=== PATIENT | female | born 1990 | race Two or more races ===

== ENCOUNTER 2020-02-11 10:53 | Inpatient (IN) | payer OTHER ==
[2020-02-11] MEDS ORDERED: DINOPROSTONE 10 MG VAGINAL SUPPOSITORY VG ONE (11:15)
[2020-02-11] MEDS: DEXTROSE 5%-LACTATED RINGERS 1,000 ML IV SCH ×2 (11:45→18:38)
[2020-02-11 12:13] VITALS: BMI 32.5
--- NOTE | 2020-02-11 12:45 | HP ---
Past Medical History - Primary Care Physician PCP:: Misty Franklin - Admission Chief Complaint: 29yo P 0 @ 39.9wks with borderline RAMILA at term. Category 2 FHR in the office, normal FM, no VB, no LOF, irregular contructions History of Present Illness: 1. Obese - 8lb weight gain, GCT - 134, EFW today 8lb-3618gm 2. GBS neg History Source: Patient, Medical Record Limitations to Obtaining History: No Limitations - Past Medical History ...: 1 ...Para: 0 ...Term: 0 ...: 0 ...Spon : 0 ...Induced : 0 ...Living Children: 0 ...Multiple Gestation: 0 ...LMP: 05/08/19 ... Weeks Gestation by Dates: 39.6 ...EDC by Dates: 02/12/20 ...EDC by Sono: 02/12/20 - Past Surgical History Past Surgical History: Yes: None Hx Myomectomy: No Hx Transabdominal Cerclage: No - Smoking History Smoking history: Never smoked Have you smoked in the past 12 months: No - Alcohol/Substance Use Hx Alcohol Use: No History of Substance Use: reports: None - Social History Usual Living Arrangement: Yes: With Parent Do you think of yourself as: Straight/Heterosexual History of Recent Travel: No Home Medications - Allergies Allergies/Adverse Reactions: Allergies Allergy/AdvReac Type Severity Reaction Status Date / Time No Known Allergies Allergy Verified 02/11/20 12:01 - Home Medications Home Medications: Ambulatory Orders Vit,Calc76/Iron/Folic [Pnv 29-1 Tablet] 1 tab PO DAILY 11/01/19 Review of Systems - Review of Systems Constitutional: reports: No Symptoms Eyes: reports: No Symptoms HENT: reports: No Symptoms Neck: reports: No Symptoms Cardiovascular: reports: No Symptoms Respiratory: reports: No Symptoms Gastrointestinal: reports: No Symptoms Genitourinary: reports: No Symptoms Breasts: reports: No Symptoms Reported Musculoskeletal: reports: No Symptoms Integumentary: reports: No Symptoms Neurological: reports: No Symptoms Endocrine: reports: No Symptoms Hematology/Lymphatic: reports: No Symptoms Psychiatric: reports: No Symptoms Pain Intensity: 0 Physical Exam - Maternity Vital Signs: Vital Signs Temperature 98.4 F 02/11/20 11:45 Pulse Rate Respiratory Rate Blood Pressure O2 Sat by Pulse Oximetry (%) Constitutional: Yes: Well Nourished, No Distress, Calm Eyes: Yes: WNL, Conjunctiva Clear, EOM Intact HENT: Yes: WNL, Atraumatic, Normocephalic Neck: Yes: WNL, Supple, Trachea Midline Cardiovascular: Yes: WNL, Regular Rate and Rhythm Lungs: Clear to auscultation Breast(s): Yes: WNL - Abdominal Exam/OB Fundal Height: 40 Number of Fetuses: Single Presentation: Vertex Contractions: Yes Regularity: Irregular Intensity: Mild Heart Rate (range): 140 Heart Rate Location: Midline Category: I Accelerations: Uniform Decelerations: None - Vaginal Exam/OB Vaginal Bleeding: No Speculum Exam: No Dilatation (cm): 0 Effacement (%): 0 Amniotic Membrane Status: Intact Presentation: Vertex/Position Station: -3 - Physical Exam Musculoskeletal: Yes: WNL Extremities: Yes: WNL Integumentary: Yes: WNL ...Motor Strength: WNL Psychiatric: Yes: WNL, Alert, Oriented Assessment/Plan 29yo P0 @ 39.6wks with borderline RAMILA @ term Irregular contractions Admit to L&D for Cervidil IOL IVF, NPO, Labs Place Cervidil Pain management as needed Process of labor induction discussed with patient All questions answered
--- NOTE | 2020-02-11 12:46 | PN ---
Progress Note (short form) - Note Progress Note: Pt was seen and examined. Chart was reviewed. The pt is a 29 yo with at EGA 39w6d was referred by Dr. Osuna for labor indx. The pt's care was complicated by intermittent BP elevations, possible chronic HTN (not on meds), poor weight gain. The pt has a Category I heart tracing with mild irregular contractions. Her cervix is 1cm/20%/-4 and she has a gynecoid pelvimetry on exam. The EFW is 8lbs by Librado's maneuvers. Pt is not in labor. We had long discussion re: risks, benefits, and alternatives of labor induction. I explained the options of expectant management awaiting spontaneous labor, induction of labor, and elective section. The risks of uterine tachysystole, distress, uterine rupture, need for emergency C/S, hemorrhage, infection, scarring, etc. were discussed. We also discussed the risks of meconium aspiration, shoulder dystocia, and anesthesia options. The pt requested to proceed with induction. We discussed the alternative methods of induction with Cervidil, Cytotec, Folley ballon, and pitocin. The pt prefers Cervidil followed by pitocin, if needed. Cervidil was inserted at 12:35 pm.
[2020-02-11 12:50] LABS: BASO % 0.7 % (0-2.0); EOS % 0.2 % (0-4.5); HEMATOCRIT 38.6 % (32.4-45.2); LYMPH % 20.3 % (8-40); MCHC 33.7 g/dl (32.0-36.0); MEAN CELL VOLUME 89.3 fl (80-96); MEAN PLT VOLUME 9.7 fl (7.5-11.1); NEUT % 69.8 % (42.8-82.8); PLATELET COUNT 328 K/MM3 (134-434); RBC 4.32 M/mm3 (3.60-5.2); RDW 14.9 % (11.6-15.6); WHITE BLOOD COUNT 7.7 K/mm3 (4.0-10.0)
[2020-02-11 12:57] LABS: INR 0.87 (0.83-1.09); PROTHROMBIN TIME (PATIENT) 10.2 SEC (9.7-13.0)
[2020-02-11 12:59] LABS: ACTIVATED PTT 30.4 SECONDS (25.2-36.5)
[2020-02-11 13:03] LABS: CALCIUM 9.1 mg/dL (8.5-10.1); CREATININE 0.5 mg/dL (0.55-1.3); POTASSIUM 4.8 mmol/L (3.5-5.1)
[2020-02-11 14:25] LABS: RETICULOCYTES 1.68 % (0.5-1.5)
[2020-02-11 14:44] LABS: URIC ACID 5.3 mg/dL (2.6-7.2)
[2020-02-11 15:09] LABS: PH,URINE 5.5 (5.0-8.0); URINE APPEARANCE CLEAR; URINE BILIRUBIN NEGATIVE (NEGATIVE); URINE COLOR YELLOW; URINE GLUCOSE (UA) NEGATIVE (NEGATIVE); URINE KETONE NEGATIVE (NEGATIVE); URINE LEUK ESTERASE NEGATIVE (NEGATIVE); URINE NITRITE NEGATIVE (NEGATIVE); URINE PROTEIN NEGATIVE (NEGATIVE); URINE UROBILINOGEN 0.2 mg/dL (0.2-1.0)
[2020-02-11] MEDS ORDERED: PROMETHAZINE HCL 25 MG/1 ML VIAL IVPUSH ONE (20:53)
[2020-02-11] MEDS ORDERED: BUTORPHANOL TARTRATE 1 MG/ML VIAL IVPB ONE (20:53)
[2020-02-12] MEDS ORDERED: BUTORPHANOL TARTRATE 1 MG/ML VIAL ONE ×2 (00:52)
[2020-02-12] MEDS ORDERED: PROMETHAZINE HCL 25 MG/1 ML VIAL ONE (00:52)
[2020-02-12] MEDS: ELECTROLYTE-148 SOLN 1,000 ML IV SCH ×2 (04:00→23:00)
[2020-02-12] MEDS ORDERED: OXYTOCIN 30 UNITS in 0.9% NS 30 UNIT/500 ML INFUS.BAG IVPB ONE ×2 (04:55→05:00)
--- NOTE | 2020-02-12 08:10 | PN ---
Progress Note, Labor Vaginal Exam #1 Labor Exam Date: 02/12/20 Labor Exam Time: 06:15 Heart Rate (range): 140, Category 1 Dilatation: 2 Effacement (%): 50 Amniotic Membrane Status: Intact Presentation: Vertex/Position Station: -3 Remarks: 29yo P0 @ 40 wks today undergoing IOL s/p Cervidil with some cervical change now on Pitocin 3mU/min continue IOL since overall MF wellbeing is reassuring
[2020-02-12] MEDS: DEXTROSE 5%-LACTATED RINGERS 1,000 ML IV SCH (11:11)
--- NOTE | 2020-02-12 12:04 | PN ---
Progress Note, Labor Vaginal Exam #2 Labor Exam Date: 02/12/20 Labor Exam Time: 12:00 Heart Rate (range): 140's Category 1 Dilatation: 2-3 Effacement (%): 50% Amniotic Membrane Status: Intact Presentation: Vertex/Position Station: -3 Remarks: 29yo P0 @ 40 wks on Pitocin 8mU/Min for term IOL MF status reassuring Will continue Induction Pain management as needed
[2020-02-12] MEDS ORDERED: PCA PUMP NR ONE ×2 (12:46→23:08)
[2020-02-12] MEDS ORDERED: FENTANYL/BUPIVACAINE/NS/PF - PCEA - 50 ML DISP.SYRIN EP ONE ×3 (12:46→23:08)
[2020-02-12] MEDS ORDERED: NALOXONE HCL 0.4 MG/ML VIAL IVPUSH PRN (12:47)
[2020-02-12] MEDS: FENTANYL/BUPIVACAINE/NS/PF - PCEA - 50 ML DISP.SYRIN EP SCH (13:20)
--- NOTE | 2020-02-12 20:41 | PN ---
Ante-Partal Exam - Subjective Subjective: No complaints, s/p epidural. Pt had pitocin restarted at about 7:30 pm. Pt had AROM done at 3pm Vital Signs: Vital Signs Temperature 98.8 F 02/12/20 20:00 Pulse Rate 82 02/12/20 20:15 Respiratory Rate 20 02/12/20 20:15 Blood Pressure 162/78 02/12/20 20:15 O2 Sat by Pulse Oximetry (%) 100 02/12/20 20:15 Bleeding: No Headache: No Visual changes: No Right upper quadrant pain: No Pain (scale 1-10): 0 - Contractions Contractions: Yes Regularity: Regular Intensity: Unaware Monitor Mode: External - Exam during Labor Heart Rate: 145 Variability: Moderate Heart Rate Location: Midline Category: I Monitor Accelerations: Present Monitor Decelerations: None Exam: Vaginal Dilatation (cm): 3 Effacement (%): 50 Amniotic Membrane Status: Leaking Amniotic Fluid: Clear Presentation: Vertex Station: -4 - Intrapartum Hemorrhage Risk Medium Risk Factors: None High Risk Factors: None Risk Score: 0 Risk Level: Low Risk - Assessment/Plan Assessment/Plan: Pt with no cervical change at this point. Fetus with Category I tracing and needs no intervention. We discussed options and she prefers to continue the labor indx. Monitor BP.
[2020-02-12] MEDS ORDERED: CITRIC ACID/SODIUM CITRATE 30 ML UNIT-DOSE CUP PO ONE ×2 (23:00→23:45)
[2020-02-12] MEDS ORDERED: ELECTROLYTE-148 SOLN 500 ML IV ONE ×2 (23:00→23:30)
[2020-02-12] MEDS ORDERED: AMPICILLIN SODIUM 2 GM VIAL ONE (23:25)
[2020-02-12] MEDS ORDERED: GENTAMICIN SO4 80 MG/2 ML VIAL ONE (23:26)
[2020-02-12] MEDS ORDERED: AMPICILLIN - 2 GM in SODIUM CHLORIDE 100 ML IVPB ONE (23:30)
[2020-02-12] MEDS ORDERED: GENTAMICIN INJECTION 120 MG in SODIUM CHLORIDE 100 ML IVPB ONE (23:45)
[2020-02-13] MEDS ORDERED: ONDANSETRON 4 MG/2 ML VIAL IVPUSH PRN (00:28)
[2020-02-13] MEDS ORDERED: LIDO 2%/EPI 1:200000 PRESRVFRE (20 ML SDVIAL) ONE (00:30)
[2020-02-13] MEDS ORDERED: KETOROLAC TROMETHAMINE 30 MG/1 ML VIAL ONE (00:37)
[2020-02-13] MEDS ORDERED: morphine SULFATE/PF 0.5 MG/ML (2cc Syringe - QUVA) ONE ×3 (00:38)
[2020-02-13] MEDS ORDERED: OXYTOCIN 10 UNITS/ML VIAL ONE (00:53)
--- NOTE | 2020-02-13 01:39 | OP ---
Operative Note - Note: Operative Date: 02/13/20 Pre-Operative Diagnosis: at EGA 40w1d. Failed induction, chorioamnionitis Operation: Primary LT C/S Findings: Live baby boy in vtx presentation, no meconium in amniotic fluid. Normal uterus, tubes and ovaries. 9-9, Baby's wt 7lb 11oz Post-Operative Diagnosis: Same as Pre-op Surgeon: Dilip Lopez Regional Recruiter: Moisés Ramirez Anesthesiologist/INSTITUTIONAL CUSTODIAN: Ayaan Mayfield Anesthesia: Epidural Specimens Removed: Placenta Estimated Blood Loss (mls): 700 Drains & Tubes with Location: Ramirez cath Drains, Volume Out (mls): 100 Blood Volume Replaced (mls): 0 Fluid Volume Replaced (mls): 700 Operative Report Dictated: Yes
[2020-02-13] MEDS ORDERED: BENZOCAINE 20% 57 GM BOTTLE TP PRN (01:40)
[2020-02-13] MEDS ORDERED: WITCH HAZEL 50% (TUCKS) 40 PAD/JAR PAD TP PRN (01:40)
[2020-02-13] MEDS: OXYTOCIN 20 UNITS in 0.9% NS 20 UNIT/1,000 ML INFUS.BAG IV SCH (01:40)
[2020-02-13] MEDS ORDERED: METHYLERGONOVINE MALEATE 0.2 MG/1 ML AMP IM PRN (01:40)
[2020-02-13] MEDS ORDERED: oxyCODONE HCL 5 MG TABLET PO PRN (01:40)
[2020-02-13] MEDS ORDERED: BENZOCAINE 28 GM HEMORRHOIDAL OINTMENT TP PRN (01:40)
[2020-02-13] MEDS ORDERED: IBUPROFEN 600 MG TABLET (FP) PO PRN (01:40)
[2020-02-13] MEDS ORDERED: IBUPROFEN 800 MG/8 ML IJ IVPB PRN (01:40)
[2020-02-13] MEDS: CEFAZOLIN 1 GM/D5W 1 GM/50 ML BAG IVPB SCH ×3 (02:00→18:56)
[2020-02-13 04:05] LABS: CORD PCO2 51.6 mmHg (30-78); CORD pH 7.248 (7.14-7.44)
[2020-02-13 04:07] LABS: CORD HCO3 25.4 mmHg (20-29); CORD PCO2 63.6 mmHg (30-78)
[2020-02-13] MEDS ORDERED: SODIUM CHLORIDE 100 ML IVPB ONE ×2 (04:24→08:28)
[2020-02-13] MEDS ORDERED: AMPICILLIN SODIUM 1 GM VIAL ONE ×2 (04:24→08:28)
[2020-02-13] MEDS: AMPICILLIN - 1 GM in SODIUM CHLORIDE 100 ML IVPB SCH ×3 (04:44→18:55)
[2020-02-13] MEDS: PRENATAL VITAMINS W/ FOLIC ACID TABLET (FP) PO SCH (09:29)
--- NOTE | 2020-02-13 09:37 | PN ---
Progress Note, Physician Chief Complaint: s/p c section under spinal anesthesia post op day one History of Present Illness: duramorph for post op pain control - Current Medication List Current Medications: Active Medications Acetaminophen (Tylenol -) 650 mg PO Q4H PRN PRN Reason: PAIN 4-6 Benzocaine (Americaine 20% [place] -) 1 spray TP PRN PRN PRN Reason: Pain - Topical Benzocaine (Americaine Ointment -) 1 applic TP PRN PRN PRN Reason: Pain - Topical Bisacodyl (Dulcolax Suppository -) 10 mg RC PRN PRN PRN Reason: CONSTIPATION Enoxaparin Sodium (Lovenox -) 40 mg SQ DAILY [facility] Fentanyl/Bupivacaine/Sodium Chlor (Bupivicaine 0.125%/Fentanyl 2mcg/Ml Pcea) 50 ml EP ASDIR [facility]; Protocol Last Admin: 02/12/20 13:20 Dose: 50 ml Documented by: Dextrose/Lactated Ringer's (D5-Lr -) 1,000 mls @ 125 mls/hr IV ASDIR [facility] Last Admin: 02/12/20 11:11 Dose: 125 mls/hr Documented by: Parenteral Electrolytes (Plasma-Lyte 148 -) 1,000 mls @ 125 mls/hr IV ASDIR [facility] Last Admin: 02/12/20 23:00 Dose: 125 mls/hr Documented by: Oxytocin/Sodium Chloride (Normal Saline+30 Units Oxytocin) 30 unit in 500 mls @ 1 mls/hr IVPB TITR ONE; Protocol Stop: 03/04/20 00:59 Last Titration: 02/12/20 23:00 Dose: 0 unit/hr, 0 mls/hr Documented by: Ampicillin Sodium 1 gm/ Sodium (Chloride) 100 mls @ 200 mls/hr IVPB Q4H [facility] Stop: 02/14/20 03:59 Last Admin: 02/13/20 08:38 Dose: 200 mls/hr Documented by: Oxytocin/Sodium Chloride (Normal Saline+20 Units Oxytocin -) 20 unit in 1,000 mls @ 125 mls/hr IV ASDIR [facility] Last Admin: 02/13/20 01:40 Dose: 125 mls/hr Documented by: Cefazolin Sodium (Ancef 1 Gm Premixed Ivpb -) 1 gm in 50 mls @ 100 mls/hr IVPB Q8H-IV TRISTIAN Stop: 02/13/20 18:29 Last Admin: 02/13/20 02:00 Dose: Not Given Documented by: Ibuprofen (Motrin -) 600 mg PO Q4H PRN PRN Reason: PAIN LEVEL 1-5 Ibuprofen (Motrin -) 600 mg PO Q4H PRN PRN Reason: PAIN LEVEL 1 - 3 Ibuprofen (Caldolor Injection -) 800 mg IVPB Q8H PRN PRN Reason: PAIN LEVEL 1-5 Last Admin: 02/13/20 09:24 Dose: 800 mg Documented by: Methylergonovine Maleate (Methergine Injection -) 0.2 mg IM Q4H PRN PRN Reason: Excessive Bleeding (L&D) Naloxone HCl (Narcan -) 0.4 mg IVPUSH PRN PRN PRN Reason: Sedation Ondansetron HCl (Zofran Injection) 4 mg IVPUSH Q4H PRN PRN Reason: NAUSEA Oxycodone HCl (Roxicodone -) 5 mg PO Q4H PRN PRN Reason: PAIN LEVEL 4 - 6 Multivit/Folic Acid/Iron ( Vitamins (Sjr) -) 1 tab PO DAILY [facility] Last Admin: 02/13/20 09:29 Dose: Not Given Documented by: Simethicone (Mylicon -) 80 mg PO Q4H PRN PRN Reason: GAS Witch Brandy/Glycerin (Tucks Pads -) 1 pad TP PRN PRN PRN Reason: Pain - Topical - Objective Vital Signs: Vital Signs Temperature 98.6 F 02/13/20 04:00 Pulse Rate 79 02/13/20 04:00 Respiratory Rate 18 02/13/20 06:00 Blood Pressure 132/80 02/13/20 04:00 O2 Sat by Pulse Oximetry (%) 98 02/13/20 02:45 Constitutional: Yes: Well Nourished Cardiovascular: Yes: WNL Respiratory: Yes: WNL Gastrointestinal: Yes: WNL Labs: CBC, BMP 02/11/20 13:54 02/11/20 11:53 INR, PTT INR 0.87 (0.83-1.09) 02/11/20 11:53 Assessment/Plan patient doing well, pain controlled, no nausea or vomiting, no post anesthesia complications, Dept of anesthesia will sign off care at this time.
[2020-02-13] MEDS: SIMETHICONE 80 MG TAB.CHEW (FP) PO PRN (19:17)
[2020-02-13] MEDS: ACETAMINOPHEN 325 MG TABLET (FP) PO PRN (19:17)
[2020-02-13] MEDS: IBUPROFEN 600 MG TABLET (FP) PO PRN (19:17)
[2020-02-13] MEDS: ELECTROLYTE-148 SOLN 1,000 ML IV SCH (21:18)
[2020-02-13] MEDS: FENTANYL/BUPIVACAINE/NS/PF - PCEA - 50 ML DISP.SYRIN EP SCH (21:20)
[2020-02-14] MEDS: SIMETHICONE 80 MG TAB.CHEW (FP) PO PRN ×3 (01:14→21:44)
[2020-02-14] MEDS: IBUPROFEN 600 MG TABLET (FP) PO PRN ×3 (01:14→21:43)
[2020-02-14] MEDS: ACETAMINOPHEN 325 MG TABLET (FP) PO PRN ×3 (01:14→21:44)
[2020-02-14] MEDS ORDERED: BISACODYL 10 MG SUPP.RECT RC PRN (01:40)
[2020-02-14] MEDS ORDERED: CEFAZOLIN 1 GM/D5W 1 GM/50 ML BAG IVPB SCH (02:00)
[2020-02-14] MEDS: OXYTOCIN 20 UNITS in 0.9% NS 20 UNIT/1,000 ML INFUS.BAG IV SCH (03:33)
--- NOTE | 2020-02-14 07:24 | OP ---
DATE OF OPERATION: 02/13/2020 PREOPERATIVE DIAGNOSES: at estimated gestational age of 40 weeks and 1 day, post term , failed labor induction, chorioamnionitis. POSTOPERATIVE DIAGNOSES: at estimated gestational age of 40 weeks and 1 day, post term , failed labor induction, chorioamnionitis, delivered. PROCEDURE: Primary low transverse section via Pfannenstiel skin incision. SURGEON: Dilip Lopez MD RESIN MIXER: REBEKAH Diaz ANESTHESIOLOGIST: KIMMY Golden ANESTHESIA: Epidural. PATHOLOGY: Placenta. INTRAVENOUS FLUIDS: 700 mL. ESTIMATED BLOOD LOSS: 700 mL. URINE OUTPUT: Clear urine, 100 mL, at the end of the procedure. COMPLICATIONS: None. FINDINGS: Live baby boy in vertex presentation. No meconium in amniotic fluids. Normal uterus, tubes and ovaries. Baby's Apgars are 9 and 9. Baby's weight 7 pounds 11 ounces. DESCRIPTION OF PROCEDURE: The patient was met preoperatively. Risks, benefits and alternatives of surgery were discussed in detail. All questions were answered. The consent form was reviewed and the patient verbalized her understanding. The patient was then moved to the OR. The patient was placed on a surgical table in a supine position. The epidural anesthesia was bolused and the level was found to be adequate. The Ramirez catheter was inserted and left to drain to gravity. The patient was prepped and draped in the usual sterile fashion. A timeout was conducted as per standard protocol. The surgeons proceeded with the operation. A Pfannenstiel skin incision was made with a knife approximately 2 cm above the pubic symphysis. The incision was taken down to the level of fascia with the knife. The incision was made in the fascia and extended bilaterally using Wynn scissors. The fascia was dissected away from the rectus muscles superiorly and inferiorly. The rectus muscles were in the midline. The peritoneum was identified, tented up with 2 Teresa clamps and entered sharply. The peritoneal incision was extended superiorly and inferiorly. The bladder peritoneum was then dissected away from the lower uterine segment. The bladder was also dissected sharply away from the lower uterine segment. The bladder was reflected downwards. The uterus was incised transversely in the lower uterine segment. The incision was extended bilaterally using bandage scissors. The baby was delivered from vertex presentation without complications. The baby was crying spontaneously and was handed to the waiting outsole beveler. The placenta was expressed manually without complications. The placenta was sent to Pathology. The uterus was cleared of all clots and debris using laparotomy laps. The uterine incision was repaired using a 0 Biosyn suture. The uterine incision was imbricated with a secondary layer of closure using a 0 Biosyn suture. Good hemostasis was noted. The bladder peritoneum was then approximated using a 0 Biosyn suture. The operative site was irrigated using copious amounts of normal saline. Once the saline was aspirated good hemostasis was confirmed. The parietal peritoneum was then approximated using a 2-0 chromic suture. The rectus muscles were approximated in the midline using several interrupted 2-0 chromic sutures. The fascia was then closed using a 0 Vicryl suture. The subcutaneous adipose tissues and Remi fascia were reapproximated using several interrupted 0 Vicryl sutures. The skin was closed using a 4-0 Vicryl suture with a subcutaneous tissue. Sponge, lap, needle counts were correct. The patient tolerated procedure well and was transferred to recovery room in stable condition. Meenakshi [id number]
[2020-02-14 08:18] LABS: BASO % 0.6 % (0-2.0); EOS % 1.3 % (0-4.5); HEMATOCRIT 29.3 % (32.4-45.2); HEMOGLOBIN 9.7 GM/dL (10.7-15.3); LYMPH % 12.6 % (8-40); MCH 29.3 pg (25.7-33.7); MEAN CELL VOLUME 88.8 fl (80-96); MEAN PLT VOLUME 9.4 fl (7.5-11.1); MONO % 9.8 % (3.8-10.2); NEUT % 75.7 % (42.8-82.8); PLATELET COUNT 265 K/MM3 (134-434); WHITE BLOOD COUNT 10.9 K/mm3 (4.0-10.0)
[2020-02-14] MEDS: ENOXAPARIN NA (PORCINE) 40 MG/0.4 ML DISP.SYRIN SQ SCH (10:12)
[2020-02-14] MEDS: PRENATAL VITAMINS W/ FOLIC ACID TABLET (FP) PO SCH (10:12)
[2020-02-15] MEDS: IBUPROFEN 600 MG TABLET (FP) PO PRN ×2 (05:45→09:46)
[2020-02-15] MEDS: SIMETHICONE 80 MG TAB.CHEW (FP) PO PRN ×2 (05:45→09:45)
[2020-02-15] MEDS: ACETAMINOPHEN 325 MG TABLET (FP) PO PRN ×2 (05:45→09:46)
--- NOTE | 2020-02-15 06:51 | DS ---
Physical Exam-ALMOND PASTE MIXER Vital Signs: Vital Signs Temperature 98.6 F 02/14/20 22:00 Pulse Rate 84 02/14/20 22:00 Respiratory Rate 18 02/14/20 22:00 Blood Pressure 135/84 02/14/20 22:00 O2 Sat by Pulse Oximetry (%) 98 02/13/20 02:45 Constitutional: Yes: Well Nourished, No Distress, Calm Eyes: Yes: WNL, Conjunctiva Clear, EOM Intact HENT: Yes: WNL, Atraumatic, Normocephalic Neck: Yes: WNL, Supple, Trachea Midline Cardiovascular: Yes: WNL, Regular Rate and Rhythm Respiratory: Yes: WNL, Regular, CTA Bilaterally Gastrointestinal: Yes: WNL ...Rectal Exam: Yes: WNL Renal/: Yes: WNL ....Post : Yes: Uterus firm, Uterus non-tender, Slight lochia rubra Breast(s): Yes: WNL Musculoskeletal: Yes: WNL Extremities: Yes: WNL Edema: Yes Edema: LLE: Trace, RLE: Trace Integumentary: Yes: WNL Wound/Incision: Yes: Clean/Dry, Well Approximated, Sutures Intact Neurological: Yes: WNL, Alert, Oriented ...Motor Strength: WNL Psychiatric: Yes: WNL, Alert, Oriented Labs: CBC, BMP 02/14/20 07:09 02/11/20 11:53 Delivery - Delivery Section: Primary, Low Flap Transverse Type of Anesthesia: Epidural Episiotomy/Laceration: None EBL (cc): 700 Delivery, Single - Stages of Labor Date 1st Stage Initiatied: 02/12/20 Time 1st Stage Initiated: 01:00 Date of Delivery: 02/13/20 Time of Delivery: 00:54 Time Placenta Delivered: 00:55 Placenta: Yes: Expressed - Condition of Education Administrator/Dredgemaster Present: Yes Name: Monique Schmitz Infant Gender: Male Weight: 7 lb 11 oz Position: OA Total Hours ROM (Hrs/Mins): 10hrs.1min - 1 Minute Total Score: 9 5 Minutes Total Score: 9 - [place] Feeding Plan Initial Plan: Elected not to breastfeed exclusively throughout hospitalization Discharge Summary Problems reviewed: Yes Reason For Visit: INDUCTION OF LABOR Procedures: Principal: primary LST c/s Hospital Course: no complication Plan of Treatment: follow up office 1 week Condition: Good - Instructions Diet, Activity, Other Instructions: regular diet, no intercouse, follow up office 1 week, if fever, pain, heavy vaginal bleeding call MD Referrals: Brando Osuna MD [Staff Physician] - Disposition: HOME - Home Medications Comprehensive Discharge Medication List: Ambulatory Orders Vit,Calc76/Iron/Folic [Pnv 29-1 Tablet] 1 tab PO DAILY 11/01/19 Ibuprofen [Motrin -] 600 mg PO QID #28 tablet 02/14/20
[2020-02-15 08:10] VITALS: BP 136/83; PULSE 81; TEMP 98.3
[2020-02-15] MEDS: PRENATAL VITAMINS W/ FOLIC ACID TABLET (FP) PO SCH (09:45)
[2020-02-15] MEDS: ENOXAPARIN NA (PORCINE) 40 MG/0.4 ML DISP.SYRIN SQ SCH (09:45)
--- NOTE | 2020-02-18 17:09 | PATH ---
Surgical Pathology Report Patient Name: PHAN DAO Med. Rec. #: [id number] /Age/Gender: 1990 (Age: 29) / F Account: [id number] Location: [facility] OBS/MANAGER FLEET Taken: 02/13/2020 Received: 02/13/2020 Reported: 02/18/2020 Physicians: Misty Franklin M.D. Specimen(s) Received PLACENTA Clinical History , 40 weeks Final Diagnosis PLACENTA: THIRD TRIMESTER PLACENTA WITH PERIVILLOUS FIBRIN DEPOSITION. TRIVASCULAR CORD. MEMBRANES WITH NO DIAGNOSTIC ABNORMALITIES. Electronically Signed Jessica Judd M.D. Gross Description The specimen is received fresh labeled placenta and is a 428 gram, 15.5 x 14.5 x 3.0 cm. placenta with attached membranes and umbilical cord. The attached membranes are dumont, translucent with focal opacities and insert marginally. The umbilical cord measures 14.5 cm. in length and averages 1 cm. in diameter. The cord inserts eccentrically, 3 cm. to the nearest margin. No true knots or strictures are identified. Cut surface of the umbilical cord reveals 3 vessels. The surface is bolden-blue with minimal fibrin deposition and appropriate caliber vessels. The maternal surface is red-brown with focal defects. Sectioning reveals red-brown, spongy parenchyma. No lesions are identified. Chiropractic Doctor sections are submitted in three cassettes as follows: 1- membrane rolls and umbilical cord; 2-3- full thickness sections of placenta. /02/13/2020 saudi02/13/2020
== END 2020-02-15 15:15 | disposition home or self-care (01) | DRG 540 ==
LOC: JLDR 10:53 → J3W 02-13 03:48
PROVIDERS: ADMIT Obstetrics & Gynecology; ATTEND Obstetrics & Gynecology
PROC: 3E0P7VZ Introduction of Hormone into Female Reproductive, Via Natural or Artificial Opening (ICD-10-PCS; 2020-02-11)
PROC: 10D00Z1 Extraction of Products of Conception, Low, Open Approach (ICD-10-PCS; principal; 2020-02-13)
DX: O48.0 Post-term pregnancy (principal); Z3A.40 40 weeks gestation of pregnancy; O61.0 Failed medical induction of labor; O99.214 Obesity complicating childbirth; O41.1230 Chorioamnionitis, third trimester, not applicable or unspecified; Z37.0 Single live birth
CPT/HCPCS: 36415; 36600; 80048; 81003; 82803; 82977; 83010; 84450; 84460; 84550; 85025; 85032; 85044; 85610; 85730; 86780; 86850; 86900; 86901; 87389; 88307-TC; U0003

== ENCOUNTER 2020-02-22 12:32 | Inpatient (IN) | payer OTHER ==
--- NOTE | 2020-02-22 12:41 | PDOC ---
Rapid Medical Evaluation Time Seen by Provider: 02/22/20 12:37 Medical Evaluation: Allergies Allergy/AdvReac Type Severity Reaction Status Date / Time No Known Allergies Allergy Verified 02/11/20 12:01 02/22/20 12:37 CC: sent by [facility] for elevated BP (145/70) , post 9 days, went for c section check and had bp reading. pt also states BLE edema for the past few days, no headache, urinary complaints Exam: bp elevated, 2+ pitting edema to BLE Plan: labs, urine Discharge Disposition - Diagnosis Elevated BP without diagnosis of hypertension - Referrals - Patient Instructions - Post Discharge Activity
[2020-02-22] MEDS ORDERED: LABETALOL HCL 5 MG/1 ML (100MG/20 ML VIAL) IVPUSH ONE ×2 (13:11→13:15)
--- NOTE | 2020-02-22 13:14 | PDOC ---
History of Present Illness - General Chief Complaint: Blood Pressure Problem Stated Complaint: SENT BY DOC Time Seen by Provider: 02/22/20 12:37 History Source: Patient Exam Limitations: No Limitations, Language Barrier - History of Present Illness Initial Comments: 02/22/20 13:16 29-year-old female no significant past medical history 9 days delivered by C section sent to ED by Dr. Valdez of OBGYN for persistent hypertension. Patient was seen in office and found to have a blood pressure of 145/90. Patient states she is asymptomatic and denies headache vision changes abdominal pain or any other signs and symptoms related to hypertension emergency. Patient is found to be hypertensive on 2 separate occasions and upon arrival to the ED her blood pressure at triage was 175/93. I spoke with SPANISH TRANSLATOR who advised to start patient on 4 g of mag and give 20 mg of labetalol IV push. Patient states she is also having minimal vaginal bleeding using 1 pad a day and denies vaginal pain. pt otherwise denies: fevers, chills, syncope, lightheadedness, dizziness, headaches, neck pain, chest pain, shortness of breath, palpitations, back pain, abdominal pain, nausea, vomiting, diarrhea, constipation, dysuria, hematuria. 02/22/20 13:39 Past History - Medical History Allergies/Adverse Reactions: Allergies Allergy/AdvReac Type Severity Reaction Status Date / Time No Known Allergies Allergy Verified 02/22/20 13:00 Home Medications: Ambulatory Orders Vit,Calc76/Iron/Folic [Pnv 29-1 Tablet] 1 tab PO DAILY 11/01/19 Ibuprofen [Motrin -] 600 mg PO QID PRN 02/22/20 Asthma: No Cancer: No Cardiac Disorders: No Diabetes: No HTN: No Seizures: No Thyroid Disease: No - Psycho-Social/Smoking History Smoking History: Never smoked Have you smoked in the past 12 months: No - Substance Abuse Hx (Audit-C & DAST Scrn) How often the patient has a drink containing alcohol: Never Score: In Men: 4 or > Positive; In Women: 3 or > Positive: 0 Screen Result (Pos requires Nsg. Audit-10AR): Negative In the last yr the pt used illegal drug/Rx for NonMed reason: No Score: Yes response is considered Positive: 0 Screen Result (Positive result requires Nsg. DAST-10): Negative Review of Systems - Review of Systems Constitutional: No: Chills, Fever, Weakness HEENTM: No: Eye Pain, Blurred Vision, Double Vision Respiratory: No: Shortness of Breath Cardiac (ROS): No: Chest Pain ABD/GI: No: Abdominal Distended, Nausea, Vomiting : No: Burning, Dysuria, Hematuria Musculoskeletal: No: Back Pain Integumentary: No: Change in Color, Flushing Neurological: No: Headache, Numbness, Paresthesia *Physical Exam - Vital Signs Last Vital Signs Temp Pulse Resp BP Pulse Ox 98.2 F 72 18 175/93 H 98 02/22/20 12:39 02/22/20 12:39 02/22/20 12:39 02/22/20 12:39 02/22/20 12:39 - Physical Exam 02/22/20 13:21 Gen: AAOx 3, no acute distress, comfortable, no signs of respiratory distress HENT: atraumatic, normocephalic with no laceration or contusion. Nasal mucosa without erythema. Oropharynx without erythema or exudates. Mucous membranes moist. EYES: PERRL, EOM intact, conjunctiva pink NECK: supple; trachea midline; no JVD, no lymphadenopathy, or thyromegaly CV: RRR no murmurs, gallops, or rubs. CHEST: CTA b/l no wheezing, rales or rhonchi ABD: +BS/ND. no TTP; soft, no rebound, no guarding Pelvic: deferred EXTREMITY: no cyanosis or erythema. 2+ dorsalis pedis, posterior tibial, and radial pulse. 2+ pitting Edema to B/L LE; no calf swelling or tenderness SKIN: no rash, warm and dry, no diaphoresis HEME: no purpura or ecchymosis NEURO: normal speech, CN II-XII intact, sensation intact, normal gait, no cerebellar deficits MS: 5/5 strength in all extremities, FROM intact in all extremities. ED Treatment Course - LABORATORY CBC & Chemistry Diagram: 02/22/20 13:00 02/22/20 13:15 Medical Decision Making - Medical Decision Making 02/22/20 13:21 29-year-old female no significant past medical history 9 days presenting with hypertension concern of preeclampsia Blood pressure 175/93 rest the vital signs stable We will obtain EKG CBC CMP UA Trop BNP mag level Will administer labetalol 20 mg IV and start loading dose of magnesium [address] patient on track rider and monitor vitals continuously Will admit to L&D under the care of Patient admitted to L&D pending bed availability and labs Labs show H&H: 12.5/37.6 Plt: 658 CMP WNL Trop negative BNP 168 UA: +blood negative for protein no UTI BP 138/75 after meds, maintenance dose of mag started in ED. Dr Mcneal updated on pts results and will handle further management. Discharge - Discharge Information Problems reviewed: Yes Clinical Impression/Diagnosis: Elevated BP without diagnosis of hypertension - Admission Yes - Follow up/Referral - Patient Discharge Instructions - Post Discharge Activity
[2020-02-22 13:24] LABS: BASO % 0.2 % (0-2.0); EOS % 1.6 % (0-4.5); HEMATOCRIT 37.6 % (32.4-45.2); HEMOGLOBIN 12.5 GM/dL (10.7-15.3); LYMPH % 25.3 % (8-40); MCH 29.7 pg (25.7-33.7); MCHC 33.2 g/dl (32.0-36.0); MEAN CELL VOLUME 89.6 fl (80-96); MEAN PLT VOLUME 7.7 fl (7.5-11.1); MONO % 8.3 % (3.8-10.2); NEUT % 64.6 % (42.8-82.8); PLATELET COUNT 658 K/MM3 (134-434)
[2020-02-22] MEDS ORDERED: MAGNESIUM SULF 50% (8.12 MEQ/2 ML-1 GM VIAL) ONE ×2 (13:24→13:36)
[2020-02-22] MEDS ORDERED: MAGNESIUM SULFATE 20GM/500ML - 20 GM/500 ML INFUS.BAG IVPB SCH (13:45)
[2020-02-22 14:11] LABS: ALBUMIN 3.6 g/dl (3.4-5.0); BILIRUBIN,TOTAL 0.3 mg/dL (0.2-1); BLOOD UREA NITROGEN 14.6 mg/dL (7-18); CALCIUM 9.6 mg/dL (8.5-10.1); CREATININE 0.7 mg/dL (0.55-1.3); MAGNESIUM 2.4 mg/dL (1.8-2.4)
[2020-02-22 14:16] LABS: N-TERMINAL BNP 168.3 pg/ml (5-125)
[2020-02-22 16:06] LABS: EPI CELLS 2 /uL (0-25.1); HYALINE CASTS 0 /uL (0-3.1); PH,URINE 5.5 (5.0-8.0); URINE APPEARANCE CLEAR; URINE BACTERIA 13 /uL (0-1359); URINE BILIRUBIN NEGATIVE (NEGATIVE); URINE COLOR YELLOW; URINE GLUCOSE (UA) NEGATIVE (NEGATIVE); URINE KETONE NEGATIVE (NEGATIVE); URINE LEUK ESTERASE TRACE (NEGATIVE); URINE NITRITE NEGATIVE (NEGATIVE); URINE PROTEIN NEGATIVE (NEGATIVE); URINE RBC 5 /uL (0-23.9); URINE UROBILINOGEN 0.2 mg/dL (0.2-1.0); URINE WBC 12 /uL (0-25.8)
[2020-02-22] MEDS ORDERED: LACTATED RINGERS SOLUTION 1,000 ML/1,000 ML INFUS.BAG IV SCH (17:00)
[2020-02-22 18:07] VITALS: BMI 32.5
--- NOTE | 2020-02-22 21:41 | HP ---
Past Medical History - Primary Care Physician PCP:: Misty Farnklin - Admission Chief Complaint: 29yo P1 POD# 8, s/p Primary c/section presented to the office with severly elevated BP, no SINGH, no Visual changes, no RUQ pain, She was sent for admission to the ER, for MgSo4 prophylaxis History of Present Illness: She was sent for admission to the ER, for MgSo4 prophylaxis History Source: Patient, Medical Record Limitations to Obtaining History: No Limitations - Past Medical History ...: 1 ...Para: 1 - Past Surgical History Past Surgical History: Yes: None, Hx Myomectomy: No Hx Transabdominal Cerclage: No - Smoking History Smoking history: Never smoked Have you smoked in the past 12 months: No - Alcohol/Substance Use Hx Alcohol Use: No History of Substance Use: reports: None - Social History History of Recent Travel: No Home Medications - Allergies Allergies/Adverse Reactions: Allergies Allergy/AdvReac Type Severity Reaction Status Date / Time No Known Allergies Allergy Verified 02/22/20 13:00 - Home Medications Home Medications: Ambulatory Orders Vit,Calc76/Iron/Folic [Pnv 29-1 Tablet] 1 tab PO DAILY 11/01/19 Ibuprofen [Motrin -] 600 mg PO QID PRN 02/22/20 Review of Systems - Review of Systems Constitutional: reports: No Symptoms Eyes: reports: No Symptoms HENT: reports: No Symptoms Neck: reports: No Symptoms Cardiovascular: reports: No Symptoms Respiratory: reports: No Symptoms Gastrointestinal: reports: No Symptoms Genitourinary: reports: No Symptoms Breasts: reports: No Symptoms Reported Musculoskeletal: reports: No Symptoms Integumentary: reports: No Symptoms Neurological: reports: No Symptoms Endocrine: reports: No Symptoms Hematology/Lymphatic: reports: No Symptoms Psychiatric: reports: No Symptoms Physical Exam - Maternity Vital Signs: Vital Signs Temperature 98.3 F 02/22/20 20:58 Pulse Rate 82 02/22/20 20:58 Respiratory Rate 18 02/22/20 20:58 Blood Pressure 142/93 02/22/20 20:58 O2 Sat by Pulse Oximetry (%) 99 02/22/20 17:02 Constitutional: Yes: Well Nourished, No Distress, Calm Eyes: Yes: WNL, Conjunctiva Clear HENT: Yes: WNL, Atraumatic Neck: Yes: WNL, Supple, Trachea Midline Cardiovascular: Yes: WNL Lungs: Clear to auscultation Breast(s): Yes: WNL - Physical Exam Integumentary: Yes: WNL ...Motor Strength: WNL Psychiatric: Yes: WNL, Alert, Oriented - Labs Lab Results: CBC, BMP 02/22/20 13:00 02/22/20 13:15 Assessment/Plan 29yo P1 with PP preeclampsia Asymptomatic Labs without evidence of HELLP Admit for MgSo4 seizure prophylaxis Start Procardia XL in am Plan to D/C in am if BP stabilizes
[2020-02-23] MEDS ORDERED: NIFEdipine E.R. 30 MG TABLET PO SCH (06:00)
[2020-02-23 07:41] LABS: BASO % 0.9 % (0-2.0); EOS % 0.6 % (0-4.5); HEMATOCRIT 37.9 % (32.4-45.2); HEMOGLOBIN 12.3 GM/dL (10.7-15.3); LYMPH % 18.7 % (8-40); MCH 28.7 pg (25.7-33.7); MCHC 32.5 g/dl (32.0-36.0); MEAN CELL VOLUME 88.2 fl (80-96); MEAN PLT VOLUME 7.6 fl (7.5-11.1); MONO % 6.9 % (3.8-10.2); NEUT % 72.9 % (42.8-82.8); PLATELET COUNT 665 K/MM3 (134-434); WHITE BLOOD COUNT 7.8 K/mm3 (4.0-10.0)
--- NOTE | 2020-02-23 11:35 | EKG ---
Test Reason : Blood Pressure : / mmHG Vent. Rate : 061 BPM Atrial Rate : 061 BPM P-R Int : 110 ms QRS Dur : 078 ms QT Int : 390 ms P-R-T Axes : 060 060 047 degrees QTc Int : 392 ms SINUS RHYTHM WITH SHORT [place] OTHERWISE NORMAL ECG NO PREVIOUS ECGS AVAILABLE Confirmed by CAROLE WU, RAGHU ([id number]) on 02/23/2020 11:35:28 AM Referred By: Confirmed By:RAGHU LAM MD
--- NOTE | 2020-02-23 15:20 | DS ---
Physical Examination Vital Signs: Vital Signs Temperature 98.2 F 02/23/20 08:00 Pulse Rate 88 02/23/20 08:00 Respiratory Rate 18 02/23/20 08:00 Blood Pressure 149/93 02/23/20 08:00 O2 Sat by Pulse Oximetry (%) 99 02/22/20 17:02 Constitutional: Yes: Well Nourished, No Distress Eyes: Yes: WNL, Conjunctiva Clear HENT: Yes: WNL, Atraumatic, Normocephalic Neck: Yes: WNL, Supple, Trachea Midline Cardiovascular: Yes: WNL, Regular Rate and Rhythm Respiratory: Yes: WNL, Regular, CTA Bilaterally Gastrointestinal: Yes: WNL, Normal Bowel Sounds, Soft ...Rectal Exam: Yes: WNL Renal/: Yes: WNL Breast(s): Yes: WNL Musculoskeletal: Yes: WNL Extremities: Yes: WNL Integumentary: Yes: WNL Wound/Incision: Yes: Clean/Dry, Well Approximated Neurological: Yes: WNL, Alert, Oriented ...Motor Strength: WNL Psychiatric: Yes: WNL, Alert, Oriented Labs: CBC, BMP 02/23/20 06:58 02/22/20 13:15 Discharge Summary Problems reviewed: Yes Reason For Visit: PRE ECLAMPSIA Current Active Problems Elevated BP without diagnosis of hypertension (Acute) Condition: Good - Instructions Diet, Activity, Other Instructions: Physical activity Resume your normal everyday activity as tolerated no heavy lifting or exercise until seen by your surgeon. You may walk unlimited cody of and climb stairs. You may resume driving the car when you feel safe and comfortable behind the wheel. No sexual activity as instructed. Wound care If you have a bandage, leave it on, and keep dry for 48-72 hours. After that time discard the outer bandage. If they are tapes on the skin under the out of bandage leave them in place. They will peel off in the next 7 to 10 days. Do Not Peel them off. You may shower the day after surgery. If there are tapes present on the skin, you may shower over them. Diet There are no dietary restrictions. Eat healthy, high-fiber foods. Drink 6 to 8 glasses of liquid each day. This will assist in keeping your bowels are regular. Pain management You may take Tylenol or acetaminophen or Ibuprofen (for example, Motrin, Advil etc.) from my pain prescription medication is ordered should be taken as prescribed for moderate to severe pain. Call MD for any of the following: Severe pain not relieved by medication Fever of 101 or higher Excessive bleeding or drainage on dressing Inability to urinate Referrals: Misty Franklin MD [Staff Physician] - - Home Medications Comprehensive Discharge Medication List: Ambulatory Orders Vit,Calc76/Iron/Folic [Pnv 29-1 Tablet] 1 tab PO DAILY 11/01/19 Ibuprofen [Motrin -] 600 mg PO QID PRN 02/22/20
[2020-02-23 17:25] VITALS: BP 132/91; PULSE 90; TEMP 98.7
== END 2020-02-23 14:55 | disposition home or self-care (01) | DRG 561 ==
LOC: JER 12:32 → JERBED 13:28 → JLDR 17:34 → J3W 02-23 01:56
PROVIDERS: ADMIT Obstetrics & Gynecology; ATTEND Obstetrics & Gynecology
DX: O90.89 Other complications of the puerperium, not elsewhere classified (principal); O14.95 Unspecified pre-eclampsia, complicating the puerperium; R60.0 Localized edema
CPT/HCPCS: 36415; 80053; 81003; 82550; 83735; 83880; 84484; 85025; 93005; 93010; 99285-25; U0003